=== PATIENT | female | born 1955 | race Caucasian/White ===

== ENCOUNTER 2023-08-24 22:50 | Inpatient (IN) | payer OTHER ==
[~2023-08-24] VITALS: Ht 157.5 cm; Wt 74.4 kg
[2023-08-24] MEDS ORDERED: methylPREDNISolone SOD SUCC 125 MG/2 ML VIAL ONE (23:06)
[2023-08-24] MEDS ORDERED: FAMOTIDINE. 20 MG/2 ML VIAL IV ONE (23:07)
[2023-08-24] MEDS: methylPREDNISolone SOD SUCC 125 MG/2 ML VIAL IV ONE (23:20)
[2023-08-24] MEDS: FAMOTIDINE. 20 MG/2 ML VIAL IV ONE (23:20)
[2023-08-24 23:37] LABS: BASOPHILS % (AUTO) 0.6 % (0.0-2.0); EOSINOPHILS # (AUTO) 0.2 K/uL (0.0-0.7); EOSINOPHILS % (AUTO) 3.5 % (0.0-7.0); HEMATOCRIT 35.4 % (31.2-41.9); HEMOGLOBIN 11.8 g/dL (10.9-14.3); LYMPHOCYTES # (AUTO) 1.7 K/uL (0.8-4.8); LYMPHOCYTES % (AUTO) 27.2 % (20.5-51.5); MEAN CORPUSCULAR HEMOGLOBIN 29.4 uug (24.7-32.8); MEAN CORPUSCULAR HGB CONC 33 g/dL (32.3-35.6); MEAN CORPUSCULAR VOLUME 88.1 fL (75.5-95.3); MONOCYTES # (AUTO) 0.6 K/uL (0.1-1.30); MONOCYTES % (AUTO) 8.8 % (0.0-11.0); NEUTROPHILS # (AUTO) 3.8 K/uL (1.8-8.9); NEUTROPHILS % (AUTO) 59.9 % (38.5-71.5); PLATELET COUNT (AUTO) 266 K/uL (179-408); RED BLOOD CELL COUNT(AUTO) 4.02 MIL/uL (3.63-4.92); RED CELL DISTRIBUTION WIDTH 13.6 % (12.3-17.7); WHITE BLOOD COUNT (AUTO) 6.4 K/uL (3.8-11.8)
[2023-08-24 23:46] LABS: ALBUMIN 3.1 g/dL (3.4-5.0); BILIRUBIN,TOTAL 0.3 mg/dL (0.2-1.0); CALCIUM 8.1 mg/dL (8.5-10.1); CREATININE 1.2 mg/dL (0.6-1.3); DIFFERENTIAL COMMENT 1; POTASSIUM 3.9 mmol/L (3.5-5.1); TOTAL PROTEIN, SERUM 6.7 g/dL (6.4-8.2)
[2023-08-25] MEDS ORDERED: CLOPIDOGREL 75 MG TABLET ONE (03:03)
[2023-08-25] MEDS ORDERED: ASPIRIN 81 MG TAB.CHEW ONE (03:03)
[2023-08-25] MEDS ORDERED: ENOXAPARIN SODIUM 80 MG/0.8 ML DISP.SYRIN SQ ONE (03:04)
[2023-08-25] MEDS: ASPIRIN 81 MG TAB.CHEW PO ONE (03:09)
[2023-08-25] MEDS: CLOPIDOGREL 75 MG TABLET PO ONE (03:09)
[2023-08-25] MEDS: ENOXAPARIN SODIUM 80 MG/0.8 ML DISP.SYRIN SQ ONE (03:14)
[2023-08-25] MEDS ORDERED: MAGNESIUM HYDROXIDE 30 ML LIQUID UDC PO PRN (03:45)
[2023-08-25] MEDS ORDERED: REMEDY ESSENTIAL ZINC PASTE 113 GM TP PRN (03:45)
[2023-08-25] MEDS ORDERED: ONDANSETRON 4 MG/2 ML VIAL IV PRN (03:45)
[2023-08-25] MEDS ORDERED: ACETAMINOPHEN 325 MG TABLET PO PRN (03:45)
[2023-08-25] MEDS ORDERED: diphenhydrAMINE 50 MG/1 ML VIAL IV PRN (03:45)
[2023-08-25] MEDS: methylPREDNISolone SOD SUCC 40 MG/ML VIAL IV SCH ×2 (06:14→17:39)
[2023-08-25] MEDS: ASPIRIN 81 MG TAB.CHEW PO SCH (08:30)
[2023-08-25] MEDS: FAMOTIDINE. 20 MG/2 ML VIAL IV SCH (08:30)
[2023-08-25 10:10] VITALS: BP 151/76; TEMP 98.1
[2023-08-25 11:39] VITALS: BP 145/72; TEMP 97.6; O2SAT 96
[2023-08-25] MEDS ORDERED: BREZTRI PO (12:32)
[2023-08-25] MEDS ORDERED: LEVO75TA7 PO (12:32)
[2023-08-25] MEDS ORDERED: METO-356 PO (12:32)
[2023-08-25] MEDS ORDERED: BENA5TAB5 PO (12:32)
[2023-08-25] MEDS ORDERED: ALBU18HF2 IH (12:32)
[2023-08-25] MEDS ORDERED: MONT10TA33 PO (12:32)
[2023-08-25] MEDS ORDERED: ROSU5TAB PO (12:32)
[2023-08-25] MEDS ORDERED: ALBUTEROL SULFATE 8 GM HFA.AER.AD IH PRN (12:45)
[2023-08-25] MEDS ORDERED: ALBUTEROL SULFATE 2.5 MG/3 ML NEBU NEB PRN (13:00)
[2023-08-25 15:53] VITALS: BP 131/63; TEMP 98.9; O2SAT 94
[2023-08-25 19:50] VITALS: BP 148/60; TEMP 98.1; O2SAT 96
[2023-08-25] MEDS ORDERED: Medication Not On Formulary EA (Rosuvastatin Calcium (Crestor) 5 MG) PO SCH (21:00)
[2023-08-25] MEDS: ATORVASTATIN 10 MG TABLET PO SCH (21:06)
[2023-08-26 00:14] VITALS: BP 137/63; TEMP 98; O2SAT 95
[2023-08-26 04:15] VITALS: BP 130/64; TEMP 97.9; O2SAT 96
[2023-08-26 06:27] LABS: BASOPHILS % (AUTO) 0.4 % (0.0-2.0); EOSINOPHILS % (AUTO) 0.1 % (0.0-7.0); HEMATOCRIT 35.6 % (31.2-41.9); HEMOGLOBIN 12.1 g/dL (10.9-14.3); LYMPHOCYTES # (AUTO) 1.3 K/uL (0.8-4.8); LYMPHOCYTES % (AUTO) 9.8 % (20.5-51.5); MEAN CORPUSCULAR HEMOGLOBIN 29.7 uug (24.7-32.8); MEAN CORPUSCULAR HGB CONC 34 g/dL (32.3-35.6); MEAN CORPUSCULAR VOLUME 87.3 fL (75.5-95.3); MONOCYTES # (AUTO) 0.9 K/uL (0.1-1.30); MONOCYTES % (AUTO) 6.9 % (0.0-11.0); NEUTROPHILS # (AUTO) 10.6 K/uL (1.8-8.9); NEUTROPHILS % (AUTO) 82.8 % (38.5-71.5); PLATELET COUNT (AUTO) 305 K/uL (179-408); RED BLOOD CELL COUNT(AUTO) 4.08 MIL/uL (3.63-4.92); RED CELL DISTRIBUTION WIDTH 13.4 % (12.3-17.7); WHITE BLOOD COUNT (AUTO) 12.7 K/uL (3.8-11.8)
[2023-08-26 06:56] LABS: DIFFERENTIAL COMMENT 1
[2023-08-26] MEDS: LEVOTHYROXINE SODIUM 75 MCG TABLET PO SCH (06:59)
[2023-08-26 07:18] LABS: CALCIUM 8.8 mg/dL (8.5-10.1); CREATININE 1.1 mg/dL (0.6-1.3); POTASSIUM 3.9 mmol/L (3.5-5.1)
[2023-08-26] MEDS: methylPREDNISolone SOD SUCC 40 MG/ML VIAL IV SCH (08:36)
[2023-08-26] MEDS: AMLODIPINE 5 MG TABLET PO SCH (08:42)
[2023-08-26] MEDS ORDERED: METOPROLOL SUCCINATE XL 25 MG TAB.SR.24H PO SCH (09:00)
[2023-08-26 11:00] LABS: THYROID STIMULATING HORMONE 1.166 mIU/mL (0.358-3.740)
[2023-08-26] MEDS ORDERED: AMLO-212 PO (11:28)
[2023-08-26 11:34] VITALS: BP 159/65; TEMP 97.9; O2SAT 98
[2023-08-26] MEDS ORDERED: MONTELUKAST SODIUM 10 MG TABLET PO SCH (18:00)
== END 2023-08-26 12:00 | disposition home or self-care (01) | DRG 811 ==
LOC: ER 22:52 → TELE3 08-25 03:45
PROVIDERS: ADMIT Nurse Practitioner Acute Care; ATTEND Nurse Practitioner Acute Care
DX: T78.2XXA Anaphylactic shock, unspecified, initial encounter (principal); I21.A1 Myocardial infarction type 2; E44.1 Mild protein-calorie malnutrition; E88.09 Other disorders of plasma-protein metabolism, not elsewhere classified; Z91.013 Allergy to seafood; T78.3XXA Angioneurotic edema, initial encounter; Z68.30 Body mass index [BMI] 30.0-30.9, adult; E03.9 Hypothyroidism, unspecified; E66.9 Obesity, unspecified; E78.5 Hyperlipidemia, unspecified; G62.9 Polyneuropathy, unspecified; M19.90 Unspecified osteoarthritis, unspecified site; J45.909 Unspecified asthma, uncomplicated; I10 Essential (primary) hypertension; Z20.822 Contact with and (suspected) exposure to COVID-19
CPT/HCPCS: 36415; 70360; 83735; 84100; 84443; 84484; 85025; 93307; A4663; G0378; J1650; J2920; J2930; J3490